=== PATIENT | male | born 1985 | race Caucasian/White ===

== ENCOUNTER 2017-02-24 09:00 | Outpatient (RCR) | payer OTHER, SELFPAY ==
--- NOTE | 2017-02-24 10:31 | BH.SGPN_ITS ---
Service Group Progress Note - Session Psychotherapy Session #1 Date Open:: 18 - 5 group members Time Started:: 09:03 Time Stopped:: 10:00 Targeted Problem #:: 1 Type of Group:: Process Goal of Group:: The goal of today's group was to check-in with client's mood, stressors, and positives and introduce topic for the day. Client Response/Progress/Benefit:: Client responded well to session, active participant. Client reports feeling defeated and irritated today as client did not receive the news he was hoping for during client's meeting with his attorneys yesterday. Client shared he feels like his concerns are not being advocated for which causes client to feel frustrated. Client reported he understands he can only focus on what is in his control and plans to cope this week by putting the courts out of his mind and not beating myself up because I' ve tried my best. Client was receptive to feedback and emotional support given from therapist and peers. Client appeared to benefit from sharing his frustrations with the group as well as reflecting on ways to manage emotions. Client progressing with utilizing coping skills such as acceptance and internal locus of control to manage emotions despite the difficult circumstances. Eye Contact:: Fair Motor Activity:: Restless Appearance:: Casual, Other - Hair somewhat unkempt compared to baseline. Speech:: Appropriate Mood:: Anxious, Other - frustrated Affect:: Congruent Thoughts:: Linear, No evidence of hallucinations/delusions noted Staff Interventions:: Therapist used open-ended questions to elicit information about client's current stressors and mood state. Therapist was supportive by using active listening and reflection. Therapist facilitated a mindfulness activity to promote emotional well-being and calmness.
--- NOTE | 2017-02-24 15:28 | BH.MDN_ITS ---
Multi-Disciplinary Note - Note 45-min Individual Time Started:: 12:24 Date: 02/24/17 Purpose of session/treatment goals addressed:: Purpose of this session was to check-in with Client regarding current symptom management and utilization of healthy means of coping. Another purpose was to review with Client means for challenging anxieties and negative thoughts via identifying areas within his control as well as small steps he can take to promote progress. Eye Contact:: Good Motor Activity:: Appropriate Appearance:: Casual Speech:: Appropriate Mood:: Dysthymic Affect:: Congruent Thoughts:: Linear, Logical, No evidence of hallucinations/delusions noted Staff Interventions:: Therapist used open-ended questions to elicit additional information regarding client current symptoms, stressors and concerns, as well as means for coping. Therapist used strengths-perspective to empower client by reviewing progress made and skills developed since admitting to IOP program. Therapist used reflective listening and empathic responses to provide encouragement and support as client discussed anxieties. Applied NH techniques to Client in identifying areas in which he can take steps to continue to promote progress and maintain current gains. Client Response:: Client responded well to session and was engaged throughout. He discussed having had a difficult time yesterday and went on to describe experiencing increased negative thinking, frustration, and disappointment. CLient explained that his symptoms were stemming from having two instances in which he had saught help with various legal issues only to be told that there was nothing he could do to change his current circumstances. Client shared experiencing fleeting thoughts of saying fuck it and engaging in self- sabotaging behaviors such as consuming alcohol but was able to stop these thoughts by giving himself time to cool down and thinking about the consequences of reacting impulsively. Client went on to share feeling more upset that he had felt dismissed and judged by the legal professionals than he was about them not being able to help him. CLient indicated that despite ongoing stressors, he has noticed an increased ability to prevent negative thinking and fear of the unknkown from impacting his mood. Client discussed that reminding himself of the potential consequences ruminating on what is out of his control will have on his mental health has been helpful in decreasing negative thinking. Client additionally indicated that his supports have been very helpful throughout this entire experience and feels he is beginning to gain a better understanding of how to manage his emotions in a healthy way. Client reports although managing stress related to legal issues has improved, he continues to experience difficulty in managing stressors related to future employment and at times desires isolation and shutting down. Client observed often falling into a pattern of catastrophizing and ruminating when thinking about what he is going to do when faced with returning to work. 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 Client appeared to benefit from processing these thoughts allowed and worked with this therapist to create a list of what options and resources he has available. Client agreeable to reaching out to local resources for assistance in obtaining employment with a legal history. Client indicates wanting to schedule an individual session for next Wednesday afternoon following court so that he can process the outcome in order to prevent negatively reacting or engaging in isolating behaviors. Risks/Concerns:: No risks or concerns at this time. Client denies any SI/HI, plan, or intent as of 02/24/17. Client maintains ability to keep himself safe and is aware of and willing to utilize the crisis resources available. Client indicates future orientation as evidenced by discussing plans to attend an upcoming court date on 03/01/17. Progress Toward Goals/Plan:: Progress made. Client has done well to internalize treatment concepts and skills learning in both individual and group sessions. He reports an increased ability to challenge negative thoughts and emotions when they arise and is improving upon accepting what is outside of his control. Client continues to struggle at times with dealing with disappointment and often isolates as a result. He has made some progress in terms of increasing insight and understanding related to Client's bipolar dx, but is recommended continued work on identifying warning signs and symptoms he experiences when in a manic or depressed state. Current plan is to continue with IOP to prevent decompensation, further improve consistant use of skills in managing sx and stressors, as well as work to improve regular communication with supports. Time Stopped:: 13:07
--- NOTE | 2017-02-26 10:56 | BH.SGPN ---
Service Group Progress Note - Session Psychotherapy Session #1 Date Open:: 02/26/17 Time Started:: 09:08 Time Stopped:: 10:16 Targeted Problem #:: 1 Type of Group:: Process - 7 Participants Goal of Group:: The goal of today's group was to check-in with client's mood, stressors, and positives, review homework, and to introduce the topic of the day. Client Response/Progress/Benefit:: Client entered session alert and attentive. Client reported he was given a return by date for work but is thinking he will be terminated due to the [employer]. Client shared he plans on getting his kids and watching movies with them and over the weekend may be in assisted til Wednesday. Client reported, Ill have to place everything on the back burner and I wont be very productive during it but I cant change it if it happens. 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 Client benefitted from group by sharing his experience with the group and receiving support and encouragement in return. Client identify one positive thing he will do for himself is fill out papers for court. Progress noted in clients ability to manage emotions and a positive demeanor despite of stressors. Continued treatment to maintain stability and emotions. Eye Contact:: Good Motor Activity:: Appropriate Appearance:: Casual Speech:: Appropriate Mood:: Euthymic Affect:: Full Thoughts:: Linear, Logical, No evidence of hallucinations/delusions noted Staff Interventions:: Therapist used open-ended questions to elicit information about client's current stressors and mood. Therapist was supportive by using active listening and reflection.
--- NOTE | 2017-02-26 11:45 | BH.COMM ---
Communication Note - Communication with Client Communication Note: This therapist briefly met with client as he wanted to provide updates in regards to an upcoming court date. Client discussed mild anxiety regarding potential shelter time and worked with therapist on challenging negative thoughts and looking for potential positives in his current situation. Client indicated focusing on trying to move forward and discuss plans to spend the weekend getting things in order for upcoming court date. Client additionally requested a letter verifying attendance and participation in the IOP program to present with at his court date.
--- NOTE | 2017-02-26 11:49 | BH.COMM_ITS ---
Communication Note - Communication with Client Communication Note: This therapist briefly met with client as he wanted to provide updates in regards to an upcoming court date. Client discussed mild anxiety regarding potential fpc time and worked with therapist on challenging negative thoughts and looking for potential positives in his current situation. Client indicated focusing on trying to move forward and discuss plans to spend the weekend getting things in order for upcoming court date. Client additionally requested a letter verifying attendance and participation in the IOP program to present with at his court date.
--- NOTE | 2017-02-26 14:04 | BH.SGPN ---
Service Group Progress Note - Session Psychotherapy Session #1 Date Open:: 02/26/17 Time Started:: 09:08 Time Stopped:: 00:16 Targeted Problem #:: 1 Type of Group:: Process - 7 participants
--- NOTE | 2017-02-26 14:45 | BH.SGPN_ITS ---
Service Group Progress Note - Session Psychotherapy Session #2 Date Open:: 02/26/17 group members Time Started:: 10:20 Time Stopped:: 11:15 Targeted Problem #:: 1 Type of Group:: Illness Management Goal of Group:: To identify within self what is keeping client trapped from achieving better quality of life. Client Response/Progress/Benefit:: Client responded well to session, active participant. Client connected with the quote sharing the way we respond to situations creates barriers.? Client nodded in agreement that not all barriers are self-induced, some are out of client?s control. Client identified barriers that keep people stuck such as negative thoughts, depression, anxiety, boundaries, and low self-esteem. Client reported negative thinking patterns impact emotions and behaviors. Client stated catastrophizing keeps client stuck. Client identified negative thoughts keeping him stuck to be ?I?m not qualified, I?m going to make a mistake, I?m going to accidentally kill someone at work.? Client seemed to connect with maintenance cycles as client reported ? one negative leads to another.? Client appeared to benefit from gaining awareness of how his thoughts can exacerbate symptoms and keep client in an unhelpful maintenance cycle. Client progressing with challenging negative thoughts, but can continue to benefit from utilizing healthy coping skills daily. Eye Contact:: Good Motor Activity:: Appropriate Appearance:: Casual Speech:: Appropriate Mood:: Anxious Affect:: Congruent Thoughts:: Linear, No evidence of hallucinations/delusions noted Staff Interventions:: Therapist facilitated discussion about what is keeping client?s stuck from moving toward mental wellness. Therapist assisted clients in connecting how thoughts can contribute to keeping clients stuck. Therapist led discussion about barriers clients face from making changes to help one move forward. Therapist provided support by using active listening and giving feedback to others. Psychotherapy Session #3 Date Open:: 02/26/17 group members Time Started:: 11:30 Time Stopped:: 12:15 Targeted Problem #:: 1 Type of Group:: Functional Skills Development Goal of Group:: To identify what client can do to release self from those things that are trapping them to find more peace and quality in everyday life. Behaviors/Verbalizations/Mental Status:: Client left five mintues early to meet with individual [facility] therapist. Client Response/Progress/Benefit:: Client responded well to session, active participant. Client reported he sees how his negative thinking impacts client's confidence in his professional abilities and causes high anxiety at work. Client identified a negative thought keeping client stuck to be I'm going to unintentionally hurt or kill someone at work. Client used the maintenance cycle worksheet and client reflected how this thought increases anxiety, panic, and self-doubt. 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 Client created an alternative thought of I know I follow safety precautions at work. Client stated when he thinks this way it reduces stress and allows client to be compassionate with himself. Client appeared to benefit from challenging negative though patterns that increase anxiety and self-doubt. Client progressing with identifying cognitive distortions and reframing thoughts. Eye Contact:: Good Motor Activity:: Restless Appearance:: Casual Speech:: Appropriate Mood:: Anxious Affect:: Congruent Thoughts:: Linear, No evidence of hallucinations/delusions noted Staff Interventions:: Therapist used examples of maintenance cycles to help clients gain awareness of how negative thinking is keeping clients stuck. Therapist facilitated discussion about different strategies for challenging negative thoughts, assisting clients in connecting how the strategies could benefit them. Therapist provided clients with homework to focus on one thing that is keeping them stuck and identify small steps to start moving towards mental wellness.
--- NOTE | 2017-03-03 12:03 | BH.SGPN_ITS ---
Service Group Progress Note - Session Psychotherapy Session #1 Date Open:: 03/03/17 Time Started:: 09:03 Time Stopped:: 09:55 Targeted Problem #:: 1 Type of Group:: Process Goal of Group:: The goal of today's group was to check-in with client's mood, stressors, and positives, review homework and introduce topic for the day. Client Response/Progress/Benefit:: Client reported Wednesday he had court for his O and ESTRELLA charges. Client reported that he dropped out of discharge but he did get the ESTRELLA charge. Client shared he is feeling disappointed with the charges because he believes his consequences were harsh given situation. Client reported he will be serving 6 days in [facility], has to go to a alcohol and drug program, not able to drive for 18 months, and is on probation for 12 months. Client shared in addition to finding out the consequences of his recent charges she was also terminated from his job. Client shared he feels like he is dealing with the termination okay because he was not really sure how he was going to be able to get to work given his job is 40 minute commute and he has no driving privileges. Client shared he is trying to focus on what has happened because he cannot change it and instead trying to put his mind on focusing what he will do now to problem solve and deal with the legal consequences of his decisions. Client seemed benefit from positive support from peers as well as expressing his thoughts and emotions. Eye Contact:: Fair Motor Activity:: Appropriate Appearance:: Casual Speech:: Appropriate Mood:: Depressed Affect:: Constricted Thoughts:: Linear, Logical, No evidence of hallucinations/delusions noted Staff Interventions:: Therapist used open-ended questions to elicit information about client's current stressors and mood state. Therapist was supportive by using active listening and reflection.
--- NOTE | 2017-03-03 13:57 | BH.SGPN ---
Service Group Progress Note - Session Psychotherapy Session #2 Date Open:: 03/03/17 Time Started:: 10:11 Time Stopped:: 11:08 Targeted Problem #:: 1 Type of Group:: Illness Management - 4 participants Psychotherapy Session #3 Date Open:: 03/03/17 Time Started:: 11:16 Time Stopped:: 12:12 Targeted Problem #:: 1 Type of Group:: Functional Skills Development - 4 participants
--- NOTE | 2017-03-03 15:39 | BH.MDN ---
Multi-Disciplinary Note - Note 30-min Individual Time Started:: 12:24 Date: 03/03/17 Time Stopped:: 12:42
--- NOTE | 2017-03-05 11:16 | BH.SGPN ---
Service Group Progress Note - Session Psychotherapy Session #1 Date Open:: 03/05/17 Time Started:: 09:00 Time Stopped:: 09:50 Targeted Problem #:: 1 Type of Group:: Process - 6 Participants Goal of Group:: The goal of today's group was to check-in with client's mood, stressors, and positives, review homework, and to introduce the topic of the day. Client Response/Progress/Benefit:: Client entered group alert, attentive, and willing to engage. Client reported feeling hopeless and wanting to sleep my problems away. Client shared how is still unsure if he will have to go [facility] [place] and has many things hanging over his head. Client shared that he will be unemployed til May and unable to file bankruptcy jointly due to this and no longer has a car nor his license and states, I just feel useless with my schedule. I cant really do anything. Client benefitted from group by identifying ways he is still moving forward and ways he can fill his time with healthy activities. Limited progress noted due to clients bleak outlook, however remains motivated to move forward. Continued treatment necessary to increase daily functioning and mood. Eye Contact:: Good Motor Activity:: Appropriate Appearance:: Casual Speech:: Appropriate Mood:: Euthymic, Depressed Affect:: Full Thoughts:: Linear, Logical, No evidence of hallucinations/delusions noted Staff Interventions:: Therapist used open-ended questions to elicit information about client's current stressors and mood. Therapist was supportive by using active listening and reflection.
--- NOTE | 2017-03-05 14:54 | BH.SGPN ---
Service Group Progress Note - Session Psychotherapy Session #2 Date Open:: 03/05/17 Time Started:: 10:00 Time Stopped:: 11:00 Targeted Problem #:: 1 Type of Group:: Illness Management Goal of Group:: To increase understanding of a crisis and improve clients awareness of how he/she feels when in a crisis. Eye Contact:: Good Motor Activity:: Appropriate Appearance:: Casual Speech:: Appropriate Mood:: Euthymic Affect:: Congruent Thoughts:: Linear, Logical, No evidence of hallucinations/delusions noted Staff Interventions:: Therapist facilitated group discussion about defining a crisis and specifying various events that are considered a crisis. Therapist led group in an activity in which group members had to identify their thoughts and emotions attached to being in a crisis. Therapist provided support by using active listening and providing feedback. Psychotherapy Session #3 Date Open:: 03/05/17 Time Started:: 11:10 Time Stopped:: 12:00 Targeted Problem #:: 1 Type of Group:: Functional Skills Development Goal of Group:: To increase awareness of warning signs before a crisis and identify interventions/coping strategies that would help clients proactively manage potential crises. Eye Contact:: Good Motor Activity:: Appropriate Appearance:: Casual Speech:: Appropriate Mood:: Euthymic Affect:: Congruent Thoughts:: Linear, Logical, No evidence of hallucinations/delusions noted Staff Interventions:: Therapist led the group in discussion about identifying personal warning signs before a crisis and importance of being aware of those signs.Therapist provided the group with various types of items and asked each group member to select five items that represent something that would be helpful in managing their warning signs of a crisis. Therapist facilitated group processing of the crisis emergency kits each group member created. Therapist used open-ended questions to encourage elaboration of each item chosen for their kit. Therapist helped clients connect how the crisis emergency kit could help be a crisis prevention tool.
--- NOTE | 2017-03-08 13:51 | BH.SGPN ---
Service Group Progress Note - Session Psychotherapy Session #2 Date Open:: 03/08/17 - 5 group members Time Started:: 10:10 Time Stopped:: 11:03 Targeted Problem #:: 1 Type of Group:: Illness Management Goal of Group:: The goal of group was to increase understanding of goals and goal setting and practice a method of goal setting. Client Response/Progress/Benefit:: Client responded well to session, quiet but participating in activity. Client processed the quote with group and shared goals are important because they give people a sense of purpose in life. Client shared in the past he had his life planned and created many goals, but after several stressors client has had to change his goals which client reports is difficult. Client helped the group create realistic goals during the activity and reminded group members to manage emotions as poor emotional regulation can prevent a person from accomplishing a goal. Client appeared to benefit from increasing awareness of SMART goal setting as well as using in the moment coping skills. Client seems to be progressing with setting small goals and coping with external stressors as evidenced by clients report of making the most of his current situation. Eye Contact:: Fair Motor Activity:: Appropriate Appearance:: Casual Speech:: Soft Mood:: Irritable, Depressed Affect:: Congruent Thoughts:: Linear, No evidence of hallucinations/delusions noted Staff Interventions:: Therapist facilitated group discussion about goals and goal setting. Therapist taught group the acronym SMART (Specific, Measurable, Achievable, Realistic, Timely) as a tool to help with goal setting. Therapist led the group in an activity to be used as a method of practicing goal setting. Therapist provided the group with a small beach ball and explained their goal was to keep the ball in the air for as long as possible. Therapist guided the group through the SMART acronym as group was participating in activity. Psychotherapy Session #3 Date Open:: 03/08/17 - 5 group members Time Started:: 11:10 Time Stopped:: 12:10 Targeted Problem #:: 1 Type of Group:: Functional Skills Development Goal of Group:: The goal of group was to identify a goal for the week, explore the potential barriers to achieving that set goal, and identify strategies to overcome barriers. Client Response/Progress/Benefit:: Client responded well to session, active participant. Client identified his weekly goal to be complete things needed for driving privileges. Client stated accomplishing this goal will help client figure out his next steps with employment. Client shared his barriers are negative thinking, family time, transportation, feeling like a burden, and catastrophizing. Client created strategies to overcome these barriers such as challenging negative thinking, reaching out to family, going to [employer] [facility], and reminding himself the situation is temporary. Client seemed to benefit from setting a realistic weekly goal that will improve his mental health as well as creating strategies to overcome barriers. Client appears to be progressing with emotional regulation as evidenced by his report of focusing on stressors in his control, but can continue to benefit from challenging cognitive distortions such as catastrophizing. Eye Contact:: Good Motor Activity:: Appropriate Appearance:: Casual Speech:: Appropriate Mood:: Anxious Affect:: Congruent Thoughts:: Linear, No evidence of hallucinations/delusions noted Staff Interventions:: Therapist explained goal setting activity to group. Therapist provided each group member with a piece of paper and asked them to write down a goal they would like to accomplish over the weekend. Therapist then asked each member to draw a path to their goal and identify barriers that could potentially get in the way of their goal. Therapist led group in processing their goal maps and had them come up with strategies to overcome the barriers. Therapist provided support by using reflective listening.
--- NOTE | 2017-03-08 14:03 | BH.MDN_ITS ---
Multi-Disciplinary Note - Note 60-min Individual Time Started:: 12:12 Date: 03/08/17 Purpose of session/treatment goals addressed:: Purpose of this session was to assess Client current tx goal progress, symptoms, and stressors. Another purpose was to provide psychoeducation reviewing cycle of depression and common contributing factors to increased depressive symptoms, as well as aid Client in identifying warning signs and healthy coping skills he can use to prevent and manage sx of recurring depression. Addressed tx goals 1, 2. Eye Contact:: Good Motor Activity:: Appropriate Appearance:: Casual Speech:: Appropriate Mood:: Dysthymic Affect:: Congruent Thoughts:: Linear, Logical, No evidence of hallucinations/delusions noted Staff Interventions:: Therapist asked open-ended questions in order to ellicit additional information regarding current symptoms, stressors, and utilization of healthy coping skills. Provided a safe and inviting environment for Client to openly vent frustrations. Provided encouragement and support through reflective listening and commending client for current progress made. Used psychoeducation to increase Client understanding of cycle of depression and contributing factors. Used IN techniques to aide Client in identifying steps to overcome identified depression warning signs. Client Response:: Client willing to meet for session following group for the day as he had scored high morales for anxiety and stress. Client indicated fearing that he is beginning to slide back as he has noticed increased isolation, irritability, and lethargy. CLient did well to recognize that these symptoms may be warning signs of falling back into a depressive cycle but expressed difficulties in identifying the most effective strategies to utilize in managing increased stressors. Client shared recieving a letter in the mail over the weekend informing him he would be required to obtain yellow driving license plates due to a [place] conviction. He discussed feeling caught off guard and as if he were being given an overly harsh punishment. Client further noted feelings that his stressors seem to be piling on all at once which in turn has impacted use of healthy coping skills and negatively effected his mental health. Client described continued difficulties in adjusting to potential consequences of [place] conviction such as how this will impact his future employment and driving restrictions. CLient shared guilt related to increased irritability. He appeared to respond well to reminding himself to break things down so he is not overwhelming himself as well as remind himself what is within his control to change. 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 Client identified additionally that engaging in activities he views as meaningful and fulfilling would be beneficial. Client shared plans to reach out to his estranged to get some of his wood burning supplies as this is a hobby Client finds enjoyable and relaxing. CLient is showing progress in levels of insight into his emotions and potential triggers however is displaying some difficulties in consistently utilizing healthy coping mechanisms such as communicating with supports or challenging negative/distorted thoughts. Risks/Concerns:: No risks or concerns at this time. CLient has done well to engage in IOP program, remains medication compliant, and denies any active Suicidal Ideation, plan, or intent as of 03/08/17. Progress Toward Goals/Plan:: Client continues to make steady progress in his ability to recognize mental health warning signs and triggers as well as establish appropriate stress management strategies. CLient reports decreased depression and anxiety since beginning IOP program and has displayed an ability to internalize the treatments concepts discussed. ALthough CLient has done well to engage in IOP program and is displaying some progress, he continues to report difficulties in managing ruminatings thoughts surrounding recent stressors and legal problems, reports isolating behaviors, and difficulties managing emotions. Client recommended ongoing IOP to maintain stability and increase consistent use of thought challenging and stress management strategies. Time Stopped:: 13:02
--- NOTE | 2017-03-08 14:03 | BH.SGPN ---
Service Group Progress Note - Session Psychotherapy Session #1 Date Open:: 03/08/17 Time Started:: 09:07 Time Stopped:: 10:01 Targeted Problem #:: 1 Type of Group:: Process - 5 participants
--- NOTE | 2017-03-10 15:22 | BH.SGPN ---
Service Group Progress Note - Session Psychotherapy Session #2 Date Open:: 03/10/17 group members Time Started:: 10:20 Time Stopped:: 11:15 Targeted Problem #:: 1 Type of Group:: Illness Management Goal of Group:: To increase understanding of resilience and identify the factors that contribute to building resilience. Client Response/Progress/Benefit:: Client responded well to session, active participant. Client processed the quote sharing, you have to accept change. Client shared he has been utilizing the mantra of ride the wave which helps client accept his emotions and situations, cope with them, and let them fade rather than hold on to them. Client stated resiliency is something that is learned and acquired by overcoming adversity. Client helped the group identify factors of resiliency such as hope and optimism and accepting change is a part of life. Client stated one needs to focus on the positive outcomes of change to increase resiliency. Client appeared to benefit from increasing his awareness of the resiliency factors. Client seems to be progressing as shown by his report of increased acceptance of change and improved use of healthy coping skills. Eye Contact:: Good Motor Activity:: Appropriate Appearance:: Casual Speech:: Appropriate Mood:: Depressed Affect:: Full Thoughts:: Linear, No evidence of hallucinations/delusions noted Staff Interventions:: Therapist led group in an activity that would induce a chaotic environment and used the activity as a tool in discussing the various stressors people are faced with each day. Therapist facilitated group discussion about resilience and explained the factors of building resilience. Therapist led discussion about factors that contribute to resilience. Therapist provided support by using active listening and providing feedback. Psychotherapy Session #3 Date Open:: 03/10/17 group members Time Started:: 11:21 Time Stopped:: 12:11 Targeted Problem #:: 1 Type of Group:: Functional Skills Development Goal of Group:: To rehearse resilient factors and identify ways to maintain resilience despite hardships and stressors. Client Response/Progress/Benefit:: Client responded well to session, active participant. Client reported being flexible and open to different options increases resiliency and growth. Client identified his personal resiliency factors to be his ability to adapt to change. Client shared I've been through a lot of crap lately and I think I'm coping well. Client was receptive to supportive statements given by therapist and peers on additional resiliency traits client possesses. Client wrote his personal resiliency traits on his stress ball to remind client of how he can remain resilient despite hardships. Client appeared to benefit from identifying ways in which client has demonstrated resiliency. Client progressing as evidenced by his report of a positive outlook when coping with change, but can continue to benefit from challenging negative thoughts. Eye Contact:: Good Motor Activity:: Appropriate Appearance:: Casual Speech:: Appropriate Mood:: Euthymic Affect:: Full Thoughts:: Linear, No evidence of hallucinations/delusions noted Staff Interventions:: Therapist led group in an activity in which group members were challenged to stay resilient despite various stressors and hardships added to activity. Therapist provided each group member with a stress ball and used stress ball as a tool to discuss factors of resilient personality. Therapist provided group members with a handout about the building blocks of resilience. Therapist provided support by using reflective listening.
--- NOTE | 2017-03-10 16:17 | BH.SGPN ---
Service Group Progress Note - Session Psychotherapy Session #1 Date Open:: 03/10/17 Time Started:: 09:09 Time Stopped:: 10:15 Targeted Problem #:: 1 Type of Group:: Process - 10 participants
--- NOTE | 2017-03-12 10:57 | BH.SGPN_ITS ---
Service Group Progress Note - Session Psychotherapy Session #1 Date Open:: 02/26/17 Time Started:: 09:08 Time Stopped:: 10:16 Targeted Problem #:: 1 Type of Group:: Process - 7 Participants Goal of Group:: The goal of today's group was to check-in with client's mood, stressors, and positives, review homework, and to introduce the topic of the day. Client Response/Progress/Benefit:: Client entered session alert and attentive. Client reported he was given a return by date for work but is thinking he will be terminated due to the [employer]. 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 Client reported, ?I?ll have to place everything on the back burner and I won?t be very productive during it but I can?t change it if it happens.? Client went on to share how she is attempting to have his treatment count has time served and plans on discussing this with his supervisor [employer]. Client benefitted from group by sharing his experience with the group and receiving support and encouragement in return. Client identify one positive thing he will do for himself is fill out papers for court. Progress noted in client?s ability to manage emotions and a positive demeanor despite of stressors. Continued treatment to maintain stability and emotions. Eye Contact:: Good Motor Activity:: Appropriate Appearance:: Casual Speech:: Appropriate Mood:: Euthymic Affect:: Full Thoughts:: Linear, Logical, No evidence of hallucinations/delusions noted Staff Interventions:: Therapist used open-ended questions to elicit information about client's current stressors and mood. Therapist was supportive by using active listening and reflection.
--- NOTE | 2017-03-12 11:17 | BH.SGPN_ITS ---
Service Group Progress Note - Session Psychotherapy Session #1 Date Open:: 03/05/17 Time Started:: 09:00 Time Stopped:: 09:50 Targeted Problem #:: 1 Type of Group:: Process - 6 Participants Goal of Group:: The goal of today's group was to check-in with client's mood, stressors, and positives, review homework, and to introduce the topic of the day. Client Response/Progress/Benefit:: Client entered group alert, attentive, and willing to engage. Client reported feeling hopeless and wanting to ?sleep my problems away.? Client shared how is still unsure if he will have to go to shelter and has many things hanging over his head. Client shared that he will be unemployed til May and unable to file bankruptcy jointly due to this and no longer has a car nor his license and states, ?I just feel useless with my schedule. I can?t really do anything.? Client benefitted from group by identifying ways he is still moving forward and ways he can fill his time with healthy activities. Limited progress noted due to client?s bleak outlook, however remains motivated to move forward. Continued treatment necessary to increase daily functioning and mood. Eye Contact:: Good Motor Activity:: Appropriate Appearance:: Casual Speech:: Appropriate Mood:: Euthymic, Depressed Affect:: Full Thoughts:: Linear, Logical, No evidence of hallucinations/delusions noted Staff Interventions:: Therapist used open-ended questions to elicit information about client's current stressors and mood. Therapist was supportive by using active listening and reflection.
--- NOTE | 2017-03-12 15:11 | BH.SGPN ---
Service Group Progress Note - Session Psychotherapy Session #2 Date Open:: 03/12/17 Time Started:: 10:17 Time Stopped:: 11:14 Targeted Problem #:: 1 Type of Group:: Illness Management - 7 participants Goal of Group:: To increase understanding of cognitive distortions, identify examples of when have had unhelpful thinking, and increase awareness of the impact cognitive distortions have on mental health. Staff Interventions:: Therapist utilized a quote as a tool to introduce topic of the day. Therapist provided group members with a handout that listed ten cognitive distortions with examples. Therapist facilitated group discussion about cognitive distortions. Therapist led group members in an activity to help them understand the impact cognitive distortions can have on emotions and behavior. Therapist provided support by using active listening and providing feedback. Psychotherapy Session #3 Date Open:: 03/12/17 Time Started:: 11:20 Time Stopped:: 12:16 Targeted Problem #:: 1 Type of Group:: Functional Skills Development - 7 participants Goal of Group:: To identify ways of defeating cognitive distortions and rehearse defeating the identified cognitive distortion. Staff Interventions:: Therapist utilized an activity as a tool in helping clients connect the amount of effort one will need to put forth to defeat cognitive distortions. Therapist provided group members with a handout to use as an aid when trying to defeat their unhelpful thinking. Therapist processed the worksheet with group members, helping them reframe the cognitive distortions.
--- NOTE | 2017-03-17 14:55 | BH.SGPN_ITS ---
Service Group Progress Note - Session Psychotherapy Session #1 Date Open:: 18 - 8 group members Time Started:: 09:05 Time Stopped:: 10:00 Targeted Problem #:: 1 Type of Group:: Process Goal of Group:: The goal of today's group was to check-in with client's mood, stressors, and positives, review homework, and to introduce the topic of the day. Client Response/Progress/Benefit:: Client responded well to session, active participant. Client reports feeling ?depressed? today, however, client could not identify a specific trigger. Client shared he attended a over the weekend which was ?sad, but there were funny moments? which client reported helped him cope. Client stated he continues to deal with multiple stressors, but reports he has been focusing on one stressor at a time which is reducing client?s anxiety and negative thinking. Client appeared to benefit from identifying helpful ways client is managing stressors and emotions. Client seems to be progressing as evidenced by his improved outlook on managing stressors and his report of increased mood stability. Eye Contact:: Good Motor Activity:: Appropriate Appearance:: Casual Speech:: Appropriate Mood:: Depressed Affect:: Full Thoughts:: Linear, No evidence of hallucinations/delusions noted Staff Interventions:: Therapist used open-ended questions to elicit information about client's current stressors and mood. Therapist was supportive by using active listening and reflection. Therapist utilized a quote as an aid in introducing the topic of the day.
--- NOTE | 2017-03-19 11:06 | BH.AFTERPLAN ---
Aftercare Plan - Demographics Treatment End Date:: 03/19/17 Psychiatrist:: Roseann Laguerre Psychiatrist Office #:: [phone] [facility] Therapist:: Manasa Benitez Therapist Phone #:: [phone] - Medications Home Medications: Home Medications Lisinopril 20 mg PO DAILY 01/03/17 Loperamide HCl [Anti-Diarrheal] 2 mg PO Q2H PRN PRN 01/03/17 Metoprolol Tartrate [Lopressor (beta mary)] 1 tab PO BID 01/03/17 Topiramate [Topamax] 50 mg PO QHS 01/03/17 Benztropine Mesylate 1 mg PO QHS PRN 02/19/17 Lamotrigine [Lamictal] 75 mg PO DAILY 02/19/17 Quetiapine Fumarate [Seroquel] 300 mg PO QHS 02/19/17 - Plan Details Progress/Aftercare Plan Details:: Client has made progress with increased insight into warning signs, mood stability, and decreased rumination and depressive symptoms. Client is consistently applying healthy coping skills of prioritizing, challenging and replacing negative thoughts, as well as healthy distractions which has aided significantly in client's ability to manage stressors and mental health symptoms more effectively. Client reports increased awareness of mental health symptoms and triggers for his susanne and depression. He indicates better ability to identify if his emotional reaction is appropriate for the circumstance and challenge himself to break things down so that they are more easily managed. Client has displayed an increased ability to think rationally and challenge distorted thinking patterns as well as communicate with supports during times of need. Client continues to report increased anxiety surrounding finances and his divorce; but, overall is able to function at baseline. Client responded well to IOP program which was evidenced by regular attendance, actively engaging in group and contributing to discussions, as well as challenging and encouraging fellow participants to utilize healthy skills learned. Client did well to actively participate in both individual and group setting and reports maintaining sobriety throughout the duration of tx. Great job Thomas! Strategies for Success:: 1. Keep doing things that get you out of the house - remember isolating only reinforces the negative thoughts 2. Keep your professional appointments. 3. Get back involved with AA. It will shane prevent the urges from having so much control and helps you to have others to connect with. 4. Keep challenging the negative thoughts and remember to ask yourself Am I making myself suffer twice? 5. Communicate, communicate, communicate!! Your supports can't help you if you don't let them in the conversation. 6. Continue to work hard at identifying warning signs and do something about it when you notice them! Ask yourself - Would I expect someone else to feel like this in a similar situation and what would I tell them to support them if they did? - Appointments Appointments/Referrals to Other Services:: Client to continue outpatient psychiatry services with Dr. Juarez for ongoing medication management. Additionally, Client is scheduled for an intake assessment with Kait oHgue of [facility] at 11:30 a.m. on 03/25/17 for individual outpatient therapy. Client indicates plans to meet with employment services at [employer] in order to work towards gainful employment. Client encouraged to attend regular AA meetings in order to maintain sobriety and prevent risk of relapse.
--- NOTE | 2017-03-19 14:14 | BH.SGPN ---
Service Group Progress Note - Session Psychotherapy Session #1 Date Open:: 03/19/17 Time Started:: 09:00 Time Stopped:: 09:51 Targeted Problem #:: 1 Type of Group:: Process - 7 Participants Goal of Group:: The goal of today's group was to check-in with client's mood, stressors, and positives, review homework, and to introduce the topic of the day. Client Response/Progress/Benefit:: Client entered session alert and attentive but appeared distracted throughout group. Client indicated feeling overwhelmed due to finances and court. He spoke about how if he is found guilty there is nothing he can do and has to accept that. He went on to share that he feels like, there are so many hoops I have to jump through, and has been, ruminating about the past and what didnt work and what might work now. Client indicated feeling guilty as his emotion and benefitted from group by venting frustrations with peers. Progress noted in clients motivation to work through his multiple stressors. Continued treatment necessary to maintain awareness of setbacks and use coping skills accordingly. Eye Contact:: Good Motor Activity:: Appropriate Appearance:: Casual Speech:: Appropriate Mood:: Euthymic, Anxious Affect:: Full Thoughts:: Linear, Logical, No evidence of hallucinations/delusions noted Staff Interventions:: Therapist used open-ended questions to elicit information about client's current stressors and mood. Therapist was supportive by using active listening and reflection. Psychotherapy Session #2 Date Open:: 03/19/17 Time Started:: 10:05 Time Stopped:: 10:55 Targeted Problem #:: 1 Type of Group:: Illness Management - 8 Participants Goal of Group:: To increase understanding of pitfalls and impact can have on mental health. Client Response/Progress/Benefit:: Client entered session alert and attentive. Client connected with the days quote stating, The right path takes patience and persistence. Client participated in group discussion on pitfalls and participated in group activity designed to help understand the impact pitfalls can have on the self. Client successfully collaborated with peers to complete activity. Client benefitted from group by identifying strategies and understanding and reducing pitfalls. Progress noted in clients ability to identify pitfalls. Continued treatment necessary to maintain gains. Eye Contact:: Good Motor Activity:: Appropriate Appearance:: Casual Speech:: Appropriate Mood:: Euthymic, Anxious Affect:: Full Thoughts:: Linear, Logical, No evidence of hallucinations/delusions noted Staff Interventions:: Therapist facilitated discussion about pitfalls and assisted group in identifying common pitfalls that can set you back. Therapist led group in an activity to help group understand impact pitfalls can have on oneself and identify strategies that could help you get back on the right path. Therapist provided support by using active listening and providing feedback.
--- NOTE | 2017-03-19 15:41 | BH.MDN ---
Multi-Disciplinary Note - Note 45-min Individual Time Started:: 11:12 Date: 03/19/17 Eye Contact:: Good Motor Activity:: Appropriate Appearance:: Casual Speech:: Appropriate Mood:: Euthymic, Anxious Affect:: Congruent Thoughts:: Linear, Logical, No evidence of hallucinations/delusions noted Time Stopped:: 11:58
--- NOTE | 2017-03-22 10:17 | BH.SGPN_ITS ---
Service Group Progress Note - Session Psychotherapy Session #2 Date Open:: 03/17/17 Time Started:: 10:15 Time Stopped:: 11:07 Targeted Problem #:: 1 Type of Group:: Illness Management - 8 group members Goal of Group:: To increase understanding how positive and negative forces in life can impact balance in life. Client Response/Progress/Benefit:: Client listened attentively to others and contracted positively discussion. Client agreeable with other group members that change and progress do not just happen overnight, recognizes the need to put forth some effort in order to have progress. Client worked cooperatively with other group members during challenge activity. Client expressed frustration during activity but was able to manage his frustration by using humor. Recognize the importance of being able to manage one's emotions because if emotions are all manage it could lead to giving up on something that is challenging. Seemed to benefit from increasing awareness of the importance of being able to balance both positive and negative forces. Eye Contact:: Good Motor Activity:: Appropriate Appearance:: Casual Speech:: Appropriate Mood:: Euthymic Affect:: Congruent Thoughts:: Linear, Logical, No evidence of hallucinations/delusions noted Staff Interventions:: Therapist facilitated group discussion about the various forces of life and helped clients connect the impact they have on balance in life. Therapist led group in an experiential activity in which group members had to work together to balance an object and move it to a designated location. Therapist utilized the activity as a tool to process the challenges connected with balancing various forces. Psychotherapy Session #3 Date Open:: 03/17/17 Time Started:: 11:17 Time Stopped:: 12:15 Targeted Problem #:: 1 Type of Group:: Functional Skills Development - 7 group members Goal of Group:: To identify positive and negative forces in life and identify which forces are helping stability and which forces are contributing to instability. Client Response/Progress/Benefit:: Client contributed positively discussion and listened to others. Client reported many of his positive forces also could be an negative force in those forces include: Family, social support, communication , stressors, not feeling good enough time to complete everything, government assistance and coping. Client reported negative forces to include having no car transportation. Client identified currently his most impactful force is healthy coping skills because by utilizing his healthy coping skills he recognizes the ability to keep his negative forces balance. Seemed to benefit from increasing awareness of his positive and negative forces. Eye Contact:: Good Motor Activity:: Appropriate Appearance:: Casual Speech:: Appropriate Mood:: Euthymic Affect:: Congruent Thoughts:: Linear, Logical, No evidence of hallucinations/delusions noted Staff Interventions:: Therapist provided group with an example of a scenario of a person and the individual???s positive and negative forces. Therapist provided each group member with a worksheet in which they were to identify five positive and five negative forces in their life. Therapist processed the activity with the group, helping others connect the impact certain forces have on their life balance.
--- NOTE | 2017-03-24 14:54 | BH.SGPN_ITS ---
Service Group Progress Note - Session Psychotherapy Session #2 Date Open:: 02/24/17 Time Started:: 10:15 Time Stopped:: 11:10 Targeted Problem #:: 1 Type of Group:: Illness Management Goal of Group:: The goal of group was to increase understanding of the benefits social support provides in mental health wellness. Another goal was to increase self-awareness of what qualities the individual group members look for in a person. Eye Contact:: Good Motor Activity:: Appropriate Appearance:: Casual Speech:: Appropriate Mood:: Euthymic Affect:: Congruent Thoughts:: Linear, Logical, No evidence of hallucinations/delusions noted Staff Interventions:: Therapist led an experiential activity that demonstrated the need of supports. Processed activity and led discussion about quote. T herapist led group discussion about importance of social supports. Identified what qualities a positive support person would have. Support was provided through reflective listening and giving feedback. Psychotherapy Session #3 Date Open:: 02/24/17 Time Started:: 11:20 Time Stopped:: 12:20 Targeted Problem #:: 1 Type of Group:: Functional Skills Development Goal of Group:: The goal of group was to increase understanding of the different types of social support. Another goal was to identify one type of support the clients desire and establish one small step towards achieving that support. Eye Contact:: Good Motor Activity:: Appropriate Appearance:: Casual Speech:: Appropriate Mood:: Euthymic Affect:: Congruent Thoughts:: Linear, Logical, No evidence of hallucinations/delusions noted Staff Interventions:: Therapist facilitated group discussion on the different types of social support and importance of each type of support. A worksheet titled Plan for Seeking Support was utilized to give clients direction in identifying which type of support they desired and identifying the first small step towards the desired support.
--- NOTE | 2017-03-24 15:03 | BH.DS_ITS ---
Discharge Summary - Demographics Date of Admission:: 01/18/17 Discharge Date: 03/19/17 Presenting Problems at Admission:: Client reported to IOP program with chief complaints of increased sx of depression and anxiety to which he attributes being caused by his impending divorce, bankruptcy, and recent [facility]LE[employer] charge. At time of admission, Client endorsing ruminative anxiety leading to occasional panic attacks, decreased motivation and energy, an increased sense of hopelessness/helplessness, passive thoughts of without plan or intent, and irritability. Client symptoms impacting ability to function on a daily basis due to high levels of anxiety and desressive sx causing client to take a leave of absence for work. Minimal insight and coping skills. Discharge Diagnoses:: Bipolar Disorder, NOS. Anxiety. Alcohol use disorder. Personality disorder Reason for Discharge:: Met all treatment plan goals. Significant progress noted as he reports decreased sx of anxiety and depression, denies SI, and indicates feeling able to begin working towards returning to work. - Treatment Progress During Treatment & Response: Client has made progress with increased insight into warning signs, mood stability, and decreased rumination and depressive symptoms. Client is consistently applying healthy coping skills of prioritizing, challenging and replacing negative thoughts, as well as healthy distractions which has aided significantly in client's ability to manage stressors and mental health symptoms more effectively. Client reports increased awareness of mental health symptoms and triggers for his susanne and depression. He indicates better ability to identify if his emotional reaction is appropriate for the circumstance and challenge himself to break things down so that they are more easily managed. Client has displayed an increased ability to think rationally and challenge distorted thinking patterns as well as communicate with supports during times of need. Client continues to report increased anxiety surrounding finances and his divorce; but, overall is able to function at baseline. Client responded well to IOP program which was evidenced by regular attendance, actively engaging in group and contributing to discussions, as well as challenging and encouraging fellow participants to utilize healthy skills learned. Client did well to actively participate in both individual and group setting and reports maintaining sobriety throughout the duration of tx. Issues Still to be Addressed:: Pt could benefit from increased psychoeducation regarding bipolar dx and identification and management of varying mood states, reinforcement of healthy coping skills, support in adjusting to recently coming out publicly as identifying with the LGBT community as well as in informing Client's family, increasing external supports/extracurricular activities, and providing support with ongoing legal issues. Discharge Recommendations/Instructions:: Client to continue outpatient psychiatry services with Dr. Juarez for ongoing medication management. Additionally, Client is scheduled for an intake assessment with Kait Hogue of [facility] at 11:30 a.m. on 03/25/17 for individual outpatient therapy. Client indicates plans to meet with employment services at [employer] in order to work towards gainful employment. Client encouraged to attend regular AA meetings in order to maintain sobriety and prevent risk of relapse. Discharge Handout: Complete Discharge Handout with client on aftercare options and continuity of care.
--- NOTE | 2017-03-24 15:17 | BH.IGGP_ITS ---
Aftercare Plan - Demographics Treatment End Date:: 03/19/17 Psychiatrist:: Roseann Laguerre Psychiatrist Office #:: [phone] [facility] Therapist:: Manasa Benitez Therapist Phone #:: [phone] - Medications Home Medications: Home Medications Lisinopril 20 mg PO DAILY 01/03/17 Loperamide HCl [Anti-Diarrheal] 2 mg PO Q2H PRN PRN 01/03/17 Metoprolol Tartrate [Lopressor (beta mary)] 1 tab PO BID 01/03/17 Topiramate [Topamax] 50 mg PO QHS 01/03/17 Benztropine Mesylate 1 mg PO QHS PRN 02/19/17 Lamotrigine [Lamictal] 75 mg PO DAILY 02/19/17 Quetiapine Fumarate [Seroquel] 300 mg PO QHS 02/19/17 - Plan Details Progress/Aftercare Plan Details:: Client has made progress with increased insight into warning signs, mood stability, and decreased rumination and depressive symptoms. Client is consistently applying healthy coping skills of prioritizing, challenging and replacing negative thoughts, as well as healthy distractions which has aided significantly in client's ability to manage stressors and mental health symptoms more effectively. Client reports increased awareness of mental health symptoms and triggers for his susanne and depression. He indicates better ability to identify if his emotional reaction is appropriate for the circumstance and challenge himself to break things down so that they are more easily managed. Client has displayed an increased ability to think rationally and challenge distorted thinking patterns as well as communicate with supports during times of need. Client continues to report increased anxiety surrounding finances and his divorce; but, overall is able to function at baseline. Client responded well to IOP program which was evidenced by regular attendance, actively engaging in group and contributing to discussions, as well as challenging and encouraging fellow participants to utilize healthy skills learned. Client did well to actively participate in both individual and group setting and reports maintaining sobriety throughout the duration of tx. Great job Thomas! Strategies for Success:: 1. Keep doing things that get you out of the house - remember isolating only reinforces the negative thoughts 2. Keep your professional appointments. 3. Get back involved with AA. It will shane prevent the urges from having so much control and helps you to have others to connect with. 4. Keep challenging the negative thoughts and remember to ask yourself Am I making myself suffer twice? 5. Communicate, communicate, communicate!! Your supports can't help you if you don't let them in the conversation. 6. Continue to work hard at identifying warning signs and do something about it when you notice them! Ask yourself - Would I expect someone else to feel like this in a similar situation and what would I tell them to support them if they did? - Appointments Appointments/Referrals to Other Services:: Client to continue outpatient psychiatry services with Dr. Juarez for ongoing medication management. Additionally, Client is scheduled for an intake assessment with Kait Hogue of [facility] at 11:30 a.m. on 03/25/17 for individual outpatient therapy. Client indicates plans to meet with employment services at [employer] in order to work towards gainful employment. Client encouraged to attend regular AA meetings in order to maintain sobriety and prevent risk of relapse.
--- NOTE | 2017-03-29 14:16 | BH.SGPN_ITS ---
Service Group Progress Note - Session Psychotherapy Session #1 Date Open:: 03/19/17 Time Started:: 09:00 Time Stopped:: 09:51 Targeted Problem #:: 1 Type of Group:: Process - 7 Participants Goal of Group:: The goal of today's group was to check-in with client's mood, stressors, and positives, review homework, and to introduce the topic of the day. Client Response/Progress/Benefit:: Client entered session alert and attentive but appeared distracted throughout group. Client indicated feeling overwhelmed due to finances and court. He spoke about how if he is found guilty there is nothing he can do and has to accept that. He went on to share that he feels like , ?there are so many hoops I have to jump through,? and has been, ?ruminating about the past and what didn?t work and what might work now.? Client indicated feeling guilty as his emotion and benefitted from group by venting frustrations with peers. Progress noted in client?s motivation to work through his multiple stressors. Continued treatment necessary to maintain awareness of setbacks and use coping skills accordingly. Eye Contact:: Good Motor Activity:: Appropriate Appearance:: Casual Speech:: Appropriate Mood:: Euthymic, Anxious Affect:: Full Thoughts:: Linear, Logical, No evidence of hallucinations/delusions noted Staff Interventions:: Therapist used open-ended questions to elicit information about client's current stressors and mood. Therapist was supportive by using active listening and reflection. Psychotherapy Session #2 Date Open:: 03/19/17 Time Started:: 10:05 Time Stopped:: 10:55 Targeted Problem #:: 1 Type of Group:: Illness Management - 8 Participants Goal of Group:: To increase understanding of pitfalls and impact can have on mental health. Client Response/Progress/Benefit:: Client entered session alert and attentive. Client connected with the day?s quote stating, ?The right path takes patience and persistence.? Client participated in group discussion on pitfalls and participated in group activity designed to help understand the impact pitfalls can have on the self. Client successfully collaborated with peers to complete activity. Client benefitted from group by identifying strategies and understanding and reducing pitfalls. Progress noted in client?s ability to identify pitfalls. Continued treatment necessary to maintain gains. Eye Contact:: Good Motor Activity:: Appropriate Appearance:: Casual Speech:: Appropriate Mood:: Euthymic, Anxious Affect:: Full Thoughts:: Linear, Logical, No evidence of hallucinations/delusions noted Staff Interventions:: Therapist facilitated discussion about pitfalls and assisted group in identifying common pitfalls that can set you back. Therapist led group in an activity to help group understand impact pitfalls can have on oneself and identify strategies that could help you get back on the right path. Therapist provided support by using active listening and providing feedback.
--- NOTE | 2017-04-02 14:20 | BH.NOTE ---
BH: Inpatient Note - Notes Behavioral Health Inpatient Note: Client called in to request refills on his Lamictal prescription. T.O. received from Dr. Laguerre. This RN called prescription into [facility] pharmacy in [place]: Lamictal 75mg PO daily 1 month with 1 refill. Brandt Nunez BSN, RN
== END 2017-03-19 14:00 | disposition home or self-care (01) ==
LOC: BHIOP 09:00
PROVIDERS: Visit Provider Psychiatry & Neurology Psychiatry
DX: F31.89 Other bipolar disorder (principal); F41.9 Anxiety disorder, unspecified; F10.20 Alcohol dependence, uncomplicated; F60.9 Personality disorder, unspecified
CPT/HCPCS: H0035; 90832; 90834; 90837; 90853